=== PATIENT | male | born 1990 | race African-American/Black ===

== ENCOUNTER 2023-09-01 13:11 | Emergency (ER) | payer MEDICAID, OTHER ==
[~2023-09-01] VITALS: Ht 175.3 cm; Wt 160.0 kg
[2023-09-01 14:03] VITALS: BP 112/75; PULSE 94; RESP 16; TEMP 98.1; O2SAT 97
[2023-09-01] MEDS ORDERED: IBUP-2029 MT (15:45)
[2023-09-01] MEDS ORDERED: METH-653 MT (15:45)
== END 2023-09-01 16:31 | disposition home or self-care (01) ==
LOC: ER 13:11
DX: S33.5XXA Sprain of ligaments of lumbar spine, initial encounter (principal); J45.909 Unspecified asthma, uncomplicated; V49.9XXA Car occupant (driver) (passenger) injured in unspecified traffic accident, initial encounter; Y93.89 Activity, other specified; Y92.89 Other specified places as the place of occurrence of the external cause; Y99.8 Other external cause status
CPT/HCPCS: 99283

== ENCOUNTER 2025-03-07 20:38 | Emergency (ER) | payer MEDICAID ==
[~2025-03-07] VITALS: Ht 180.3 cm; Wt 100.0 kg
[~2025-03-07 20:38] MED LIST: IBUP-1455 MT; METH-653 MT
[2025-03-07 20:45] VITALS: O2SAT 97
[2025-03-07] MEDS: AZITHROMYCIN 500 MG TABLET PO ONE (22:20)
[2025-03-07] MEDS: CEFTRIAXONE SODIUM 500MG VIAL IM ONE (22:20)
[2025-03-07] MEDS ORDERED: TOPUD MT (22:52)
[2025-03-07 23:13] VITALS: BP 124/73; PULSE 88; RESP 18; TEMP 37; O2SAT 97
[2025-03-07 23:39] LABS: INFLUENZA TYPE A Presumptive Negative (Pres. Neg.); INFLUENZA TYPE B Presumptive Negative (Pres. Neg.)
[2025-03-07 23:41] LABS: RESPIRATORY SYNCYTIAL VIRUS Not Detected (Not Detectd)
[2025-03-09 05:10] LABS: HSV TYPE 2 SPECIFIC AB IGG Non Reactive (Non Reactive)
== END 2025-03-07 23:13 | disposition home or self-care (01) ==
LOC: ER 20:38
DX: U07.1 COVID-19 (principal); J45.909 Unspecified asthma, uncomplicated; B34.9 Viral infection, unspecified; Z11.3 Encounter for screening for infections with a predominantly sexual mode of transmission; Z79.899 Other long term (current) drug therapy
CPT/HCPCS: 99284; 71045; 87426; 86592; 86695; 86696; 87420; 87804 ×2; 36415; 96372; J0696; 87491; 87591; A4606